=== PATIENT | female | born 1990 | race Caucasian/White ===

== ENCOUNTER 2020-01-21 10:52 | Emergency (ER) | payer BC ==
[~2020-01-21] VITALS: Ht 160 cm; Wt 59.0 kg
--- NOTE | 2020-01-21 11:00 | NUR ---
PATIENT TO ER #8
[2020-01-21 11:15] VITALS: BP_SYST 130
[2020-01-21] MEDS ORDERED: PNV91TAB3 PO (11:15)
[2020-01-21] MEDS ORDERED: NACL 0.9% 1,000 ML IV ONE (11:15)
[2020-01-21] MEDS ORDERED: ALBU8.5H5 INH (11:15)
[2020-01-21 11:31] LABS: BILIRUBIN,URINE NEGATIVE (NEGATIVE); CLARITY/URINE CLEAR (CLEAR); COLOR,URINE YELLOW (YELLOW); GLUCOSE,URINE NEGATIVE (NEGATIVE); KETONES,URINE NEGATIVE (NEGATIVE); LEUKOCYTE ESTERASE ,URINE NEGATIVE (NEGATIVE); PROTEIN URINE NEGATIVE (NEGATIVE)
[2020-01-21 11:32] LABS: BLOOD, URINE TRACE (NEGATIVE); NITRITE, URINE NEGATIVE (NEGATIVE); UROBILINOGEN,URINE 0.2 (0.2-1.0)
[2020-01-21 11:33] LABS: BASOPHILS % (AUTO) 0.5 % (0.0-2.0); EOSINOPHILS # (AUTO) 0.1 K/uL (0.0-0.4); EOSINOPHILS % (AUTO) 0.9 % (0.0-4.0); HEMATOCRIT 39.1 % (36-48); HEMOGLOBIN 13.1 g/dL (12.0-16.0); LYMPHOCYTES # (AUTO) 1.8 K/uL (1.0-5.5); LYMPHOCYTES % (AUTO) 26.8 % (20.5-51.5); MEAN CORPUSCULAR HEMOGLOBIN 32 pg (27-31); MEAN CORPUSCULAR HGB CONC 34 % (32-36); MEAN CORPUSCULAR VOLUME 94 fL (79.0-98.0); MONOCYTES # (AUTO) 0.6 K/uL (0.0-1.0); MONOCYTES % (AUTO) 8.4 % (1.7-9.3); NEUTROPHILS # (AUTO) 4.3 K/uL (1.8-7.7); NEUTROPHILS % (AUTO) 63.4 % (40.0-70.0); PLATELET COUNT (AUTO) 254 K/uL (130-430); RED BLOOD CELL COUNT(AUTO) 4.17 MIL/uL (4.2-6.2); RED CELL DISTRIBUTION WIDTH 12.6 % (9.0-15.0); WHITE BLOOD COUNT (AUTO) 6.8 K/uL (4.8-10.8)
[2020-01-21 11:35] LABS: CALCIUM 8.6 mg/dL (8.4-11.0); CREATININE 0.68 mg/dL (0.55-1.30); POTASSIUM 3.6 mmol/L (3.5-5.1)
[2020-01-21 11:36] LABS: BACTERIA,URINE FEW /HPF (None Seen); RBC,URINE 0-3 /HPF (0-3); WBC,URINE 0-3 /HPF (0-3)
--- NOTE | 2020-01-21 11:40 | NUR ---
Patient presents to ER C/O Abdominal Pain Patient A&Ox4, ambulatory to ER, afebrile, skin pink and warm, denies N/V, diarrhea, pain 8 /10. Patient states abdominal pain and diarrea x2 days, patient states she is 5 weeks .
[2020-01-21 12:04] LABS: ALBUMIN 3.5 g/dL (3.4-4.8); TOTAL BILIRUBIN 0.4 mg/dL (0.0-1.0)
--- NOTE | 2020-01-21 12:05 | NUR ---
# 20 gauge angiocath placed to RAC. Use of asceptic technique. Opsite placed over site. Blood return noted. Blood for lab drawn from site. Flushed with 10 cc of normal saline. No evidence of infiltration noted. Patient tolerated well.
--- NOTE | 2020-01-21 12:06 | NUR ---
Patient transported to radiology via WC, accompanied by US STAFF.
[2020-01-21 14:45] VITALS: BP_SYST 130
== END 2020-01-21 14:45 | disposition home or self-care (01) ==
LOC: SED 10:52
DX: O26.891 Other specified pregnancy related conditions, first trimester (principal); R10.30 Lower abdominal pain, unspecified; R19.7 Diarrhea, unspecified; Z3A.01 Less than 8 weeks gestation of pregnancy; Z88.8 Allergy status to other drugs, medicaments and biological substances; Z79.899 Other long term (current) drug therapy
CPT/HCPCS: 36415; 76801; 76817; 80053; 81000; 84702; 85025; 96360; 99284; J7030